=== PATIENT | female | born 1985 | race Caucasian/White ===

== ENCOUNTER 2016-10-25 17:31 | Emergency (ER) | payer OTHER ==
[~2016-10-25] VITALS: Ht 157.5 cm; Wt 58.0 kg
[~2016-10-25 17:31] MED LIST: IBUP-1542 PO; NITR-58 PO; ONDA-43 PO
[2016-10-25 17:35] VITALS: Ht 157.5 cm; Wt 58.0 kg
[2016-10-25] MEDS ORDERED: NPH10OT RIGHT EAR (18:44)
--- NOTE | 2016-10-25 18:48 | ERD ---
ER Documentation Chief Complaint Date/Time DATE: 10/25/16 TIME: 18:45 Chief Complaint Complains of right ear pain since today HPI Patient is a 31-year-old female who presents to the ED with right ear pain 1 day. She states that she woke up this morning with pain inside her right ear. She denies any recent swimming or travel. She also complains of itchy watery eyes. She states that she is taking loratadine for her symptoms. Denies fever or chills. Denies headache, dizziness,, nausea, vomiting, diarrhea. Denies abdominal pain. Denies chest pain, cough, shortness of breath or difficulty breathing. She has taken Motrin for her symptoms which helped with the pain. She denies drainage from her ears. ROS All systems reviewed and are negative except as per history of present illness. Medications Home Meds Active Scripts Neomycin/Polymyxin/Hydrocort* (Cortisporin* Otic) 10 Ml Susp, 4 DROP RIGHT EAR QID, #1 EA Prov:FERMÍN ABEL PA-C 10/25/16 Ondansetron Hcl* (Zofran*) 4 Mg Tab, 4 MG PO Q4H Y for NAUSEA AND OR VOMITING, # 20 TAB Prov:AMY WILSON PA-C 03/10/15 Ibuprofen* (Ibuprofen*) 600 Mg Tablet, 600 MG PO Q6 Y for PAIN, #30 TAB Prov:AMY WILSON PA-C 03/10/15 Nitrofurantoin Monohyd Macrocr* (Macrobid*) 100 Mg Capsr, 100 MG PO BID for 5 Days, CAP Prov:AMY WILSON PA-C 03/10/15 Allergies Allergies: Coded Allergies: No Known Allergy (Unverified , 03/10/15) PMhx/Soc History of Surgery: Yes (C SECTION ) Anesthesia Reaction: Yes Hx Neurological Disorder: Yes (migraine) Hx Respiratory Disorders: No Hx Cardiac Disorders: No Hx Psychiatric Problems: No Hx Miscellaneous Medical Probl: No Hx Alcohol Use: No Hx Substance Use: No Hx Tobacco Use: No Smoking Status: Never smoker Physical Exam Vitals Vital Signs Date Time Temp Pulse Resp B/P Pulse Ox O2 Delivery O2 Flow Rate FiO2 10/25/16 17:35 98.2 79 20 124/59 100 Physical Exam GENERAL: Well-developed, well-nourished female. Appears in no acute distress. HEAD: Normocephalic, atraumatic. EYES: Pupils are equally reactive bilaterally. EOMs grossly intact. No conjunctival erythema. ENT: Moist mucous membranes. No uvula deviation. No kissing tonsils. No exudates. Bilateral TMs are not erythematous, nonbulging. No drainage. No mastoid tenderness. Right ear canal is slightly erythematous. No pain to tragus or pinna. No mastoid tenderness. No nystagmus. NECK: Supple. No lymphadenopathy or thyromegaly. No meningismus. negative kernig. negative brudinski. LUNG: Clear to auscultation bilaterally. No rhonchi, wheezing, rales or coarse breath sounds. HEART: Regular rate and rhythm. No murmurs, rubs or gallops. NEUROLOGIC: Alert and oriented. Moving all four extremities. 5/5 strength in all extremities. Normal speech. Steady gait. Cranial nerves II through XII intact SKIN: Normal color. Warm and dry. No rashes or lesions. Capillary refill < 2 seconds Procedures/MDM ER COURSE: I kept the patient and/or family informed of laboratory and diagnostic imaging results throughout the emergency room course. MEDICAL DECISION MAKING: This is a 31-year-old female who presents with right ear pain 1 day. Vital signs were reviewed. Patient is afebrile. Patient is not hypoxic. Patient is not toxic or ill-appearing. Temperature 98.2 with an O2 sat of 100. Patient likely has otitis externa of her right ear. Low suspicion for, malignant otitis externa, TM perforation, mastoiditis, acute otitis media. DISCHARGE: At this time, patient is stable for discharge and outpatient management with no new complaints during the ER course. Patient was sent home with Corticosporin otic drops. Advised patient to follow-up with primary care this week.. Patient will be discharged home with instructions to recheck for new or worsening symptoms such as fever, nausea, weakness, LOC and to follow up with primary care in the next 1-2 days. Patient was advised to return to the ER for any new or worsening symptoms. Plan was discussed and patient and/or family understands and agrees. Home instructions were given. Departure Diagnosis: Primary Impression: Otitis externa Otitis externa type: unspecified type Laterality: right Chronicity: unspecified Qualified Code: H60.91 - Otitis externa of right ear, unspecified chronicity, unspecified type Condition: Stable Patient Instructions: External Ear Infection (Adult) Additional Instructions: Llame al doctor MAANA y tonie meka DAWIT PARA DENTRO DE 1-2 BROWN.Dgale a la secretaria que nosotros le instruimos hacer esta dawit.Avise o llame si cedillo condicin se empeora antes de la dawit. Regresa aqui si peor o no mejor. FERMÍN AEBL PA-C Oct 25, 2016 18:48
[2016-10-25 19:01] VITALS: BP 118/66; PULSE 68; RESP 17; TEMP 98
== END 2016-10-25 19:01 | disposition home or self-care (01) ==
LOC: FTE 17:31
DX: H60.91 Unspecified otitis externa, right ear (principal)
CPT/HCPCS: 99283

== ENCOUNTER 2017-06-23 06:19 | Emergency (ER) | payer OTHER ==
[~2017-06-23] VITALS: Ht 162.6 cm; Wt 58.2 kg
[~2017-06-23 06:19] MED LIST changes: +NPH10OT RIGHT EAR
[2017-06-23 06:25] VITALS: Ht 162.6 cm; Wt 58.2 kg
[2017-06-23] MEDS ORDERED: HYDROCODONE/APAP (5/325) TAB PO ONE ×2 (07:00)
[2017-06-23] MEDS ORDERED: ONDANSETRON (ODT) 4 MG TAB ODT ONE (07:12)
[2017-06-23] MEDS ORDERED: ONDANSETRON (ODT) 4 MG TAB ODT STA (07:12)
[2017-06-23 07:52] LABS: ADD UMIC YES; UR ASCORBIC ACID 20 mg/dL (NEGATIVE); UR BILIRUBIN (Dip) NEGATIVE (NEGATIVE); UR BLOOD (Dip) 1+ mg/dL (NEGATIVE); UR CLARITY CLOUDY (CLEAR); UR COLOR YELLOW (YELLOW); UR GLUCOSE (Dip) NEGATIVE (NEGATIVE); UR KETONES (Dip) TRACE mg/dL (NEGATIVE); UR LEUKOCYTE ESTERASE (Dip) 2+ Leu/ul (NEGATIVE); UR MUCUS FEW /HPF (NONE SEEN); UR NITRITE (Dip) NEGATIVE (NEGATIVE); UR RBC 3 /HPF (0-5); UR SPECIFIC GRAVITY (Dip) 1.019 (1.003-1.030); UR SQUAMOUS EPITHELIAL CELL MODERATE /HPF (FEW); UR TOTAL PROTEIN (Dip) 1+ mg/dl (NEGATIVE); UR UROBILINOGEN (Dip) NEGATIVE (NEGATIVE)
--- NOTE | 2017-06-23 07:52 | RADRPT ---
PROCEDURE: CT Brain without contrast. CLINICAL INDICATION: Headaches. Neurologic deficit TECHNIQUE: A CT of the brain was performed on multidetector high-resolution CT scanner utilizing a xial sections from the skull base through the vertex without contrast. One or more of the following dose reduction techniques were used: Automated exposure control, Adjustment of the mA and/or kV acc ording to patient size, and/or use of iterative reconstruction technique. DICOM images are available . DOSE: CTDI = 45 mGy and the DLP = 720 mGy-cm. COMPARISON: None available FINDINGS: No acute intracranial hemorrhage, significant mass effect or midline shift. The kirk-white different iation is grossly preserved. The ventricles are normal in size for age. No significant opacification of the visualized paranasal sinuses or mastoids. IMPRESSION: No acute intracranial findings. RPTAT: AA .Fer Jacinto MD, MD Date Time Electronically viewed and signed by .Fer Jacinto MD, on 06/23/2017 07:52 .T/
--- NOTE | 2017-06-23 07:56 | ERD ---
ER Documentation Chief Complaint Chief Complaint c/o headache x5 days, vomited x5 today. Took sumatriptan yesterday HPI This is a 32-year-old female who presents to the emergency department today complaining of a headache for the past 5-6 days. Patient states she has a history of migraines and has taken sumatriptan and the headache goes away for short period of time and then returns in a couple of hours. States that she started vomiting multiple times today. States that this headache feels different than usual. States that she usually has a headache on the right or left side but now her headache is all over and in the back. Denies any fevers or chills. ROS All systems reviewed and are negative except as per history of present illness. Medications Home Meds Active Scripts Acetamin/Butalbital/Caffeine* (Fioricet*) [id number] Tab, 1 TAB PO Q6H Y for PAIN, #30 TAB Prov:GLADYS JENSEN PA-C 06/23/17 Ondansetron Hcl* (Zofran*) 4 Mg Tablet, 4 MG PO Q6H for NAUSEA AND/OR VOMITING, #30 TAB Prov:GLADYS JENSEN PA-C 06/23/17 Cephalexin* (Keflex*) 500 Mg Capsule, 500 MG PO QID for 7 Days, CAP Prov:GLADYS JENSEN PA-C 06/23/17 Neomycin/Polymyxin/Hydrocort* (Cortisporin* Otic) 10 Ml Susp, 4 DROP RIGHT EAR QID, #1 EA Prov:FERMÍN ABEL PA-C 10/25/16 Ondansetron Hcl* (Zofran*) 4 Mg Tab, 4 MG PO Q4H Y for NAUSEA AND OR VOMITING, # 20 TAB Prov:AMY WILSON PA-C 03/10/15 Ibuprofen* (Ibuprofen*) 600 Mg Tablet, 600 MG PO Q6 Y for PAIN, #30 TAB Prov:AMY WILSON PA-C 03/10/15 Nitrofurantoin Monohyd Macrocr* (Macrobid*) 100 Mg Capsr, 100 MG PO BID for 5 Days, CAP Prov:AMY WILSON PA-C 03/10/15 Allergies Allergies: Coded Allergies: No Known Allergy (Unverified , 03/10/15) PMhx/Soc History of Surgery: Yes (C SECTION ) Anesthesia Reaction: Yes Hx Neurological Disorder: Yes (migraine) Hx Respiratory Disorders: No Hx Cardiac Disorders: No Hx Psychiatric Problems: No Hx Miscellaneous Medical Probl: No (thyroid, early menopause) Hx Alcohol Use: No Hx Substance Use: No Hx Tobacco Use: No Physical Exam Vitals Vital Signs Date Time Temp Pulse Resp B/P Pulse Ox O2 Delivery O2 Flow Rate FiO2 06/23/17 06:25 98.3 95 18 109/57 97 Physical Exam Const: NAD Head: Atraumatic . Eyes: Normal Conjunctiva with mild light sensitivity. PERRLA. EOM intact. ENT: Normal External Ears, Nose and Mouth. Neck: Full range of motion..~ No meningismus. Resp: Clear to auscultation bilaterally Cardio: Regular rate and rhythm, no murmurs Abd: Soft, non tender, non distended. Normal bowel sounds Skin: No petechiae or rashes Back: No midline or flank tenderness Ext: No cyanosis, or edema Neur: Awake and alert. Nerves II through XII intact. No gait ataxia. Psych: Normal Mood and Affect Results 24 hrs Laboratory Tests Test 06/23/17 07:10 Urine Color YELLOW Urine Clarity CLOUDY Urine pH 7.0 Urine Specific [place] 1.019 Urine Ketones TRACEmg/dL Urine Nitrite NEGATIVEmg/dL Urine Bilirubin NEGATIVEmg/dL Urine Urobilinogen NEGATIVEmg/dL Urine Leukocyte Esterase 2+Te/ul Urine Microscopic RBC 3/HPF Urine Microscopic WBC 19/HPF Urine Squamous Epithelial Cells MODERATE/HPF Urine Mucus FEW/HPF Urine Hemoglobin 1+mg/dL Urine Glucose NEGATIVEmg/dL Urine Total Protein 1+mg/dl Current Medications Medications (Trade) Dose Ordered Sig/Rafaela Route PRN Reason Start Time Stop Time Status Last Admin Dose Admin Acetaminophen/ Hydrocodone Bitart ([place] (5/325)) 1 tab ONCE ONCE PO 06/23/17 07:00 06/23/17 07:02 DC 06/23/17 07:10 Acetaminophen/ Hydrocodone Bitart ([place] (5/325)) 1 tab ONCE ONCE PO 06/23/17 07:00 06/23/17 07:02 DC Ondansetron HCl (Zofran Odt) 4 mg STK-MED ONCE ODT 06/23/17 07:12 06/23/17 07:13 DC Ondansetron HCl (Zofran Odt) 4 mg ONCE STAT ODT 06/23/17 07:12 06/23/17 07:13 DC 06/23/17 07:16 Ketorolac Tromethamine 30 mg 30 mg ONCE STAT IV 06/23/17 07:57 06/23/17 07:59 DC 06/23/17 08:05 Sodium Chloride (NS) 1,000 ml @ 1,000 mls/hr Q1H ONCE IV 06/23/17 08:00 06/23/17 08:59 DC 06/23/17 08:08 Diphenhydramine HCl (Benadryl) 25 mg ONCE ONCE IV 06/23/17 08:00 06/23/17 08:01 DC 06/23/17 08:05 DIAGNOSTIC IMAGING REPORT Patient: CATRACHO GREENE : 1985 Age: 32 Sex: F MR #: [id number] DOS: 06/23/17 0000 Ordering MD: GLADYS JENSEN PA-C Location: [facility] Room/Bed: PROCEDURE: CT Brain without contrast. CLINICAL INDICATION: Headaches. Neurologic deficit TECHNIQUE: A CT of the brain was performed on multidetector high-resolution CT scanner utilizing axial sections from the skull base through the vertex without contrast. One or more of the following dose reduction techniques were used: Automated exposure control, Adjustment of the mA and/or kV according to patient size, and/or use of iterative reconstruction technique. DICOM images are available. DOSE: CTDI = 45 mGy and the DLP = 720 mGy-cm. COMPARISON: None available FINDINGS: No acute intracranial hemorrhage, significant mass effect or midline shift. The kirk-white differentiation is grossly preserved. The ventricles are normal in size for age. No significant opacification of the visualized paranasal sinuses or mastoids. IMPRESSION: No acute intracranial findings. RPTAT: AA .Fer Jacinto MD, MD Date Time Electronically viewed and signed by .Fer Jacinto MD, on 06/23/2017 07:52 .T/ CC: GLADYS JENSEN PA-C Procedures/MDM This is a 32-year-old female who presents the emergency department today complaining of headache for the past 5-6 days. Patient states that she does have a history of migraines but that this feels different and her pain is now in the back of her head and she is not getting relief with her sumatriptan. Given that patient has never had a head CT scan I did obtain one today Charis given that she has new complaints and her symptoms are unusual for her regular migraine symptoms as obtained a UA UA shows 2+ leukocyte esterase and 19 microscopic white blood cells test is negative Head CT shows no acute intracranial findings. There is no intracranial hemorrhage, mass-effect or midline shift Patient's bBlood pressure is 109/57I havet low suspicion for hypertensive emergency or hypertensive urgency. Low suspicion for abscess, mass, meningitis Symptoms at this time most consistent with headache possibly migraine and urinary tract infection as cause of headache and vomiting. Patient was given [place] here in the emergency department prior to her head CT scan and she was actively vomiting. She was given Zofran. Patient was then given a migraine cocktail of Toradol, IV fluids and Benadryl and reported feeling better Patient will be given a prescription for Keflex, Zofran, Fioricet or she may take her sumatriptan as prescribed At this time the patient is stable for discharge and outpatient management. Patient should follow up with their PCP in the next 1-2 days. They may return to the emergency department sooner for any persistent or worsening of symptoms. Patient understood and agreed with the plan. Departure Diagnosis: Primary Impression: Headache Headache type: unspecified Headache chronicity pattern: episodic headache Intractability: not intractable Qualified Code: R51 - Nonintractable episodic headache, unspecified headache type Additional Impression: UTI (urinary tract infection) Urinary tract infection type: site unspecified Hematuria presence: without hematuria Qualified Code: N39.0 - Urinary tract infection without hematuria, site unspecified Condition: Fair GLADYS JENSEN PA-C Jun 23, 2017 07:56
[2017-06-23] MEDS ORDERED: KETOROLAC 30 MG INJ IV STA (07:57)
[2017-06-23] MEDS ORDERED: SOD CHLORIDE 0.9% 1,000 ML IV ONE (08:00)
[2017-06-23] MEDS ORDERED: DIPHENHYDRAMINE 50 MG INJ IV ONE (08:00)
[2017-06-23] MEDS ORDERED: CEPH-443 PO (10:04)
[2017-06-23] MEDS ORDERED: ONDA4TAB8 PO (10:04)
[2017-06-23] MEDS ORDERED: FIORICET PO (10:05)
[2017-06-23 10:17] VITALS: BP 94/52; PULSE 68; RESP 20; TEMP 98.3
== END 2017-06-23 10:23 | disposition home or self-care (01) ==
LOC: FTE 06:19
DX: N39.0 Urinary tract infection, site not specified (principal)
CPT/HCPCS: 70450; 81001; 96374; 96375; J1200; J1885; J7030; Z7502; Z7610